=== PATIENT | female | born 1965 | race Asian ===

== ENCOUNTER 2023-09-02 03:50 | Day surgery (SDC) | payer OTHER ==
[2023-08-27 12:15] VITALS: BMI 20.8
[2023-09-02] MEDS ORDERED: MIDAZOLAM HCL 2 MG/2 ML SINGLE DOSE VIAL ONE (07:35)
[2023-09-02] MEDS ORDERED: PROPOFOL 20 ML ONE ×2 (07:35→08:04)
[2023-09-02] MEDS ORDERED: IBUPROFEN 800 MG/8 ML IJ IVPB PRN (07:49)
[2023-09-02] MEDS ORDERED: ONDANSETRON 4 MG/2 ML VIAL IVPUSH PRN (07:49)
[2023-09-02] MEDS ORDERED: IBUPROFEN 600 MG TABLET (FP) PO PRN (07:49)
[2023-09-02] MEDS ORDERED: oxyCODONE HCL 5 MG TABLET PO PRN (07:49)
[2023-09-02] MEDS ORDERED: ELECTROLYTE-148 SOLN 1,000 ML IV SCH (08:00)
[2023-09-02] MEDS ORDERED: PROMETHAZINE HCL 25 MG/1 ML VIAL IVPB PRN (08:36)
[2023-09-02] MEDS ORDERED: LACTATED RINGERS SOLUTION 1,000 ML IV SCH (08:45)
[2023-09-02 09:49] VITALS: BP 121/70; PULSE 68; RESP 18; TEMP 97.8
== END 2023-09-02 10:32 | disposition home or self-care (01) ==
LOC: JASU-SURG 03:50
PROVIDERS: ATTEND Obstetrics & Gynecology
PROC: 0UDB8ZX Extraction of Endometrium, Via Natural or Artificial Opening Endoscopic, Diagnostic (ICD-10-PCS; principal; 2023-09-02 07:30)
DX: N95.0 Postmenopausal bleeding (principal)
CPT/HCPCS: 88305-TC; 94760